=== PATIENT | female | born 1985 | race Caucasian/White ===

== ENCOUNTER 2016-09-25 17:49 | Emergency (ER) | payer MEDICAID ==
[2016-09-25 19:23] LABS: BASOPHILS 0.2 % (0.0-2.0); HEMOGLOBIN 9.4 g/dL (12-16); IMMATURE GRANULOCYTES 0.4 % (0-5); MCH 25.7 pg (26.0-34.0); MCHC 31.3 g/dL (31.0-37.0); MEAN PLATELET VOLUME 10.5 fL (7.4-10.4); MONOCYTES 6.7 % (2-11); NEUTROPHILS 60.7 % (40-80); PLATELET COUNT 181 10x3/uL (130-400); RBC 3.66 10x6/uL (4.00-5.40); RDW 18.5 % (11.5-14.5); WBC 5.1 10x3/uL (4.8-10.8)
[2016-09-25 19:53] LABS: ALBUMIN 3.1 g/dL (3.4-5.0); ALKALINE PHOSPHATASE 72 U/L (46-116); ALT (SGPT) 20 U/L (10-68); BILIRUBIN - TOTAL 1.43 mg/dL (0.2-1.3); CALC OSMOLALITY 279 mosm/kg (275-300); CARBON DIOXIDE 25.9 mmol/L (21.0-32.0); CHLORIDE - SERUM 106 mmol/L (98-107); CREATININE - SERUM 0.7 mg/dL (0.6-1.3); GLUCOSE 152 mg/dL (74-106); POTASSIUM - SERUM 3.7 mmol/L (3.5-5.1); PROTEIN - SERUM 7.3 g/dL (6.4-8.2); SODIUM 140 mmol/L (136-145); UREA NITROGEN 7 mg/dL (7-18); eGFR NON AFRICAN AMERICAN > 90 mL/min (90-120)
[2016-09-25 20:03] LABS: APPEARANCE HAZY (CLEAR); BILIRUBIN NEGATIVE (NEGATIVE); COLOR YELLOW (YELLOW); GLUCOSE NEGATIVE (NEGATIVE); KETONE NEGATIVE (NEGATIVE); LEUKOCYTE ESTERASE 2+ (NEGATIVE); NITRITE POSITIVE (NEGATIVE); PROTEIN TRACE mg/dL (NEGATIVE); UROBILINOGEN NORMAL (NORMAL)
[2016-09-25 20:04] LABS: BACTERIA MANY /hpf (NONE SEEN); RED CELLS - URINE 0-5 /hpf (0-5); WHITE CELLS - URINE 25-50 /hpf (0-5)
[2016-09-25 20:14] LABS: HCG SERUM NEGATIVE (NEGATIVE)
== END 2016-09-25 20:36 | disposition home or self-care (01) ==
LOC: D.ER 17:49
PROVIDERS: Emergency Medicine
DX: R11.10 Vomiting, unspecified (principal); E86.0 Dehydration; A08.4 Viral intestinal infection, unspecified; N39.0 Urinary tract infection, site not specified; B20 Human immunodeficiency virus [HIV] disease

== ENCOUNTER 2016-09-27 16:21 | Emergency (ER) | payer MEDICAID ==
[2016-09-27 17:03] LABS: BASOPHILS 0.2 % (0.0-2.0); EOSINOPHILS 1.5 % (0-7); HEMATOCRIT 28.6 % (36.0-48.0); HEMOGLOBIN 9.3 g/dL (12-16); IMMATURE GRANULOCYTES 0.4 % (0-5); LYMPHOCYTES 30.3 % (15-50); MCH 26.2 pg (26.0-34.0); MCHC 32.5 g/dL (31.0-37.0); MCV 80.6 fL (80.0-100.0); MEAN PLATELET VOLUME 10.5 fL (7.4-10.4); MONOCYTES 5.4 % (2-11); NEUTROPHILS 62.2 % (40-80); PLATELET COUNT 181 10x3/uL (130-400); RBC 3.55 10x6/uL (4.00-5.40); RDW 18.6 % (11.5-14.5); WBC 5.2 10x3/uL (4.8-10.8)
[2016-09-27 17:06] LABS: HCG SERUM NEGATIVE (NEGATIVE)
[2016-09-27 17:19] LABS: ALBUMIN 2.9 g/dL (3.4-5.0); ALKALINE PHOSPHATASE 69 U/L (46-116); ALT (SGPT) 23 U/L (10-68); BILIRUBIN - TOTAL 1.06 mg/dL (0.2-1.3); CALC OSMOLALITY 280 mosm/kg (275-300); CALCIUM 8.3 mg/dL (8.5-10.1); CARBON DIOXIDE 25.1 mmol/L (21.0-32.0); CHLORIDE - SERUM 107 mmol/L (98-107); CREATININE - SERUM 0.6 mg/dL (0.6-1.3); GLUCOSE 130 mg/dL (74-106); POTASSIUM - SERUM 3.8 mmol/L (3.5-5.1); PROTEIN - SERUM 6.9 g/dL (6.4-8.2); SODIUM 141 mmol/L (136-145); UREA NITROGEN 7 mg/dL (7-18); eGFR NON AFRICAN AMERICAN > 90 mL/min (90-120)
[2016-09-27 17:52] LABS: APPEARANCE HAZY (CLEAR); COLOR YELLOW (YELLOW)
[2016-09-27 17:53] LABS: BILIRUBIN NEGATIVE (NEGATIVE); GLUCOSE NEGATIVE (NEGATIVE); KETONE NEGATIVE (NEGATIVE); LEUKOCYTE ESTERASE 1+ (NEGATIVE); NITRITE POSITIVE (NEGATIVE); PROTEIN NEGATIVE (NEGATIVE); UROBILINOGEN NORMAL (NORMAL)
[2016-09-27 17:55] LABS: BACTERIA MANY /hpf (NONE SEEN); EPITHELIAL CELLS 0-5 /hpf (0-5); RED CELLS - URINE 0-5 /hpf (0-5)
== END 2016-09-27 19:00 | disposition home or self-care (01) ==
LOC: D.ER 16:21
PROVIDERS: Emergency Medicine
DX: R10.9 Unspecified abdominal pain (principal); N39.0 Urinary tract infection, site not specified; F17.200 Nicotine dependence, unspecified, uncomplicated

== ENCOUNTER 2016-11-27 16:31 | Emergency (ER) | payer MEDICAID ==
[2016-11-27 17:44] LABS: BASOPHILS 0.2 % (0-2); EOSINOPHILS 1.5 % (0-7); HEMATOCRIT 29.8 % (36.0-48.0); HEMOGLOBIN 9.8 g/dL (12-16); IMMATURE GRANULOCYTES 0.4 % (0-5); LYMPHOCYTES 34.3 % (15-50); MCH 26.8 pg (26.0-34.0); MCHC 32.9 g/dL (31.0-37.0); MCV 81.4 fL (80.0-100.0); MEAN PLATELET VOLUME 10.3 fL (7.4-10.4); MONOCYTES 6.1 % (2-11); NEUTROPHILS 57.5 % (40-80); PLATELET COUNT 203 10x3/uL (130-400); RBC 3.66 10x6/uL (4.00-5.40); RDW 18.6 % (11.5-14.5); WBC 5.5 10x3/uL (4.8-10.8)
[2016-11-27 17:54] LABS: APTT 28.7 SECONDS (22.8-39.4); INR 0.98 (0.85-1.17); PROTIME 12.8 SECONDS (11.6-15.0)
[2016-11-27 18:04] LABS: ALBUMIN 3.3 g/dL (3.4-5.0); ALKALINE PHOSPHATASE 78 U/L (46-116); ALT (SGPT) 16 U/L (10-68); BILIRUBIN - TOTAL 1.29 mg/dL (0.2-1.3); CALC OSMOLALITY 274 mosm/kg (275-300); CALCIUM 8.7 mg/dL (8.5-10.1); CARBON DIOXIDE 26.4 mmol/L (21.0-32.0); CHLORIDE - SERUM 105 mmol/L (98-107); CREATININE - SERUM 0.6 mg/dL (0.6-1.3); GLUCOSE 117 mg/dL (74-106); PROTEIN - SERUM 8.2 g/dL (6.4-8.2); SODIUM 138 mmol/L (136-145); UREA NITROGEN 7 mg/dL (7-18); eGFR NON AFRICAN AMERICAN > 90 mL/min (90-120)
[2016-11-27 21:03] LABS: APPEARANCE HAZY (CLEAR); COLOR YELLOW (YELLOW); GLUCOSE NEGATIVE (NEGATIVE); KETONE NEGATIVE (NEGATIVE); LEUKOCYTE ESTERASE 2+ (NEGATIVE); NITRITE NEGATIVE (NEGATIVE); PROTEIN NEGATIVE (NEGATIVE); UROBILINOGEN NORMAL (NORMAL)
[2016-11-27 21:04] LABS: BILIRUBIN NEGATIVE (NEGATIVE)
[2016-11-27 21:05] LABS: RED CELLS - URINE 0-5 /hpf (0-5)
[2016-11-27 21:06] LABS: BACTERIA MANY /hpf (NONE SEEN); HCG URINE NEGATIVE (NEGATIVE)
== END 2016-11-27 21:17 | disposition home or self-care (01) ==
LOC: D.ER 16:31
PROVIDERS: Family Medicine; Nurse Practitioner Acute Care
DX: N39.0 Urinary tract infection, site not specified (principal); B20 Human immunodeficiency virus [HIV] disease

== ENCOUNTER 2017-02-02 15:57 | Emergency (ER) | payer MEDICAID ==
[2017-02-02 16:27] LABS: BASOPHILS 0.2 % (0-2); EOSINOPHILS 1.3 % (0-7); HEMATOCRIT 29.5 % (36.0-48.0); HEMOGLOBIN 9.5 g/dL (12-16); IMMATURE GRANULOCYTES 0.5 % (0-5); LYMPHOCYTES 26.7 % (15-50); MCHC 32.2 g/dL (31.0-37.0); MCV 83.8 fL (80.0-100.0); MEAN PLATELET VOLUME 10.5 fL (7.4-10.4); NEUTROPHILS 65.3 % (40-80); RBC 3.52 10x6/uL (4.00-5.40); RDW 19.1 % (11.5-14.5); WBC 5.5 10x3/uL (4.8-10.8)
[2017-02-02 16:28] LABS: PLATELET COUNT 159 10x3/uL (130-400)
[2017-02-02 16:40] LABS: HCG SERUM NEGATIVE (NEGATIVE)
[2017-02-02 16:52] LABS: ALBUMIN 3.1 g/dL (3.4-5.0); ALKALINE PHOSPHATASE 85 U/L (46-116); ALT (SGPT) 11 U/L (10-68); BILIRUBIN - TOTAL 1.51 mg/dL (0.2-1.3); CALC OSMOLALITY 278 mosm/kg (275-300); CALCIUM 8.2 mg/dL (8.5-10.1); CARBON DIOXIDE 25.2 mmol/L (21.0-32.0); CHLORIDE - SERUM 107 mmol/L (98-107); CREATININE - SERUM 0.3 mg/dL (0.6-1.3); GLUCOSE 132 mg/dL (74-106); POTASSIUM - SERUM 4.9 mmol/L (3.5-5.1); PROTEIN - SERUM 7.6 g/dL (6.4-8.2); SODIUM 139 mmol/L (136-145); UREA NITROGEN 9 mg/dL (7-18); eGFR NON AFRICAN AMERICAN > 90 mL/min (90-120)
[2017-02-02 17:36] LABS: APPEARANCE CLEAR (CLEAR); COLOR YELLOW (YELLOW); SPECIFIC GRAVITY 1.015 (1.005-1.020)
[2017-02-02 17:37] LABS: BILIRUBIN NEGATIVE (NEGATIVE); GLUCOSE NEGATIVE (NEGATIVE); KETONE NEGATIVE (NEGATIVE); LEUKOCYTE ESTERASE 1+ (NEGATIVE); NITRITE POSITIVE (NEGATIVE); PROTEIN NEGATIVE (NEGATIVE); UROBILINOGEN NORMAL (NORMAL)
[2017-02-02 17:42] LABS: BACTERIA MANY /hpf (NONE SEEN); EPITHELIAL CELLS 0-5 /hpf (0-5)
== END 2017-02-02 18:39 | disposition home or self-care (01) ==
LOC: D.ER 15:57
PROVIDERS: Emergency Medicine; Nurse Practitioner Family
DX: N93.9 Abnormal uterine and vaginal bleeding, unspecified (principal); R10.2 Pelvic and perineal pain; N39.0 Urinary tract infection, site not specified; B20 Human immunodeficiency virus [HIV] disease; R10.9 Unspecified abdominal pain; R50.9 Fever, unspecified; M54.5 Low back pain; R35.0 Frequency of micturition; R11.10 Vomiting, unspecified

== ENCOUNTER 2017-03-01 23:45 | Emergency (ER) | payer MEDICAID ==
[2017-03-02 01:20] LABS: BASOPHILS 0 % (0-2); EOSINOPHILS 1.9 % (0-7); HEMATOCRIT 26.8 % (36.0-48.0); HEMOGLOBIN 8.7 g/dL (12-16); IMMATURE GRANULOCYTES 0.2 % (0-5); LYMPHOCYTES 35.6 % (15-50); MCH 26.2 pg (26.0-34.0); MCHC 32.5 g/dL (31.0-37.0); MCV 80.7 fL (80.0-100.0); MEAN PLATELET VOLUME 10.4 fL (7.4-10.4); MONOCYTES 5.7 % (2-11); NEUTROPHILS 56.6 % (40-80); RBC 3.32 10x6/uL (4.00-5.40); RDW 17.4 % (11.5-14.5); WBC 4.2 10x3/uL (4.8-10.8)
[2017-03-02 01:26] LABS: ALBUMIN 2.8 g/dL (3.4-5.0); ALKALINE PHOSPHATASE 84 U/L (46-116); ALT (SGPT) 17 U/L (10-68); AMYLASE - SERUM 43 U/L (25-115); CALC OSMOLALITY 280 mosm/kg (275-300); CALCIUM 7.8 mg/dL (8.5-10.1); CARBON DIOXIDE 29.3 mmol/L (21.0-32.0); CHLORIDE - SERUM 107 mmol/L (98-107); CREATININE - SERUM 0.7 mg/dL (0.6-1.3); GLUCOSE 119 mg/dL (74-106); LIPASE 107 U/L (73-393); POTASSIUM - SERUM 3.2 mmol/L (3.5-5.1); PROTEIN - SERUM 7.1 g/dL (6.4-8.2); SODIUM 142 mmol/L (136-145); UREA NITROGEN 5 mg/dL (7-18); eGFR NON AFRICAN AMERICAN > 90 mL/min (90-120)
[2017-03-02 01:27] LABS: PLATELET COUNT 209 10x3/uL (130-400)
[2017-03-02 02:01] LABS: HCG URINE NEGATIVE (NEGATIVE)
[2017-03-02 02:03] LABS: APPEARANCE HAZY (CLEAR); BILIRUBIN NEGATIVE (NEGATIVE); COLOR YELLOW (YELLOW); GLUCOSE NEGATIVE (NEGATIVE); KETONE NEGATIVE (NEGATIVE); LEUKOCYTE ESTERASE 1+ (NEGATIVE); NITRITE POSITIVE (NEGATIVE); PROTEIN TRACE mg/dL (NEGATIVE); SPECIFIC GRAVITY 1.015 (1.005-1.020); UROBILINOGEN NORMAL (NORMAL)
[2017-03-02 02:04] LABS: BACTERIA MANY /hpf (NONE SEEN); EPITHELIAL CELLS RARE /hpf (0-5); RED CELLS - URINE 0-5 /hpf (0-5)
== END 2017-03-02 03:05 | disposition home or self-care (01) ==
LOC: D.ER 23:45
PROVIDERS: Family Medicine
DX: K59.00 Constipation, unspecified (principal); R11.10 Vomiting, unspecified; N39.0 Urinary tract infection, site not specified; D64.9 Anemia, unspecified; B20 Human immunodeficiency virus [HIV] disease

== ENCOUNTER 2017-03-17 13:49 | Emergency (ER) | payer MEDICAID ==
[2017-03-17 14:17] LABS: BASOPHILS 0.2 % (0-2); EOSINOPHILS 0.6 % (0-7); HEMATOCRIT 32.2 % (36.0-48.0); HEMOGLOBIN 10.6 g/dL (12-16); IMMATURE GRANULOCYTES 0.2 % (0-5); LYMPHOCYTES 30.5 % (15-50); MCH 26.5 pg (26.0-34.0); MCHC 32.9 g/dL (31.0-37.0); MCV 80.5 fL (80.0-100.0); MEAN PLATELET VOLUME 10.2 fL (7.4-10.4); MONOCYTES 6.3 % (2-11); NEUTROPHILS 62.2 % (40-80); PLATELET COUNT 226 10x3/uL (130-400); WBC 6.4 10x3/uL (4.8-10.8)
[2017-03-17 14:44] LABS: APPEARANCE HAZY (CLEAR); BILIRUBIN NEGATIVE (NEGATIVE); COLOR YELLOW (YELLOW); GLUCOSE NEGATIVE (NEGATIVE); KETONE NEGATIVE (NEGATIVE); LEUKOCYTE ESTERASE 2+ (NEGATIVE); NITRITE NEGATIVE (NEGATIVE); PROTEIN NEGATIVE (NEGATIVE); UROBILINOGEN NORMAL (NORMAL)
[2017-03-17 14:45] LABS: BACTERIA MANY /hpf (NONE SEEN); MUCUS <1+ /lpf (NONE SEEN); RED CELLS - URINE 0-5 /hpf (0-5); WHITE CELLS - URINE 25-50 /hpf (0-5)
[2017-03-17 14:51] LABS: HCG SERUM NEGATIVE (NEGATIVE)
== END 2017-03-17 15:46 | disposition home or self-care (01) ==
LOC: D.ER 13:49
PROVIDERS: Emergency Medicine
DX: R10.9 Unspecified abdominal pain (principal); D64.9 Anemia, unspecified; N76.0 Acute vaginitis; B20 Human immunodeficiency virus [HIV] disease

== ENCOUNTER 2020-10-26 01:20 | Inpatient (IN) | payer MEDICAID ==
[~2020-10-26] VITALS: Ht 167.6 cm; Wt 145.1 kg
[2020-10-26] VITALS (10 sets, daily range): BP systolic 86–119; BP diastolic 43–64; Ht 167.6 cm; Wt 145.1 kg
[2020-10-26] MEDS ORDERED: DOVATO PO (01:44)
[2020-10-26] MEDS ORDERED: HYDROCHLOROTHIA50 MG PO (01:55)
[2020-10-26 02:03] LABS: BASOPHILS 0.2 % (0-2); EOSINOPHILS 0.6 % (0-7); HEMATOCRIT 27.5 % (36.0-48.0); HEMOGLOBIN 8.7 g/dL (12-16); IMMATURE GRANULOCYTES 0.4 % (0-5); LYMPHOCYTE ABS# 0.33 10x3/uL (1.18-3.74); LYMPHOCYTES 6.5 % (15-50); MCH 25.7 pg (26.0-34.0); MCHC 31.6 g/dL (31.0-37.0); MCV 81.1 fL (80.0-100.0); MEAN PLATELET VOLUME 10.2 fL (7.4-10.4); MONOCYTES 0.8 % (2-11); NEUTROPHIL ABS# 4.65 10x3/uL (1.56-6.13); NEUTROPHILS 91.5 % (40-80); PLATELET COUNT 193 10x3/uL (130-400); RBC 3.39 10x6/uL (4.00-5.40); RDW 17.6 % (11.5-14.5); WBC 5.1 10x3/uL (4.8-10.8)
[2020-10-26 02:11] LABS: BILIRUBIN NEGATIVE (NEGATIVE); KETONE NEGATIVE (NEGATIVE); NITRITE NEGATIVE (NEGATIVE); UROBILINOGEN NORMAL mg/dL (< 2)
[2020-10-26 02:13] LABS: CALC OSMOLALITY 281 mosm/kg (275-300); CALCIUM 7.6 mg/dL (8.5-10.1); CARBON DIOXIDE 25.7 mmol/L (21.0-32.0); CHLORIDE - SERUM 106 mmol/L (98-107); CREATININE - SERUM 0.9 mg/dL (0.6-1.3); POTASSIUM - SERUM 3.4 mmol/L (3.5-5.1); SODIUM 140 mmol/L (136-145); UREA NITROGEN 9 mg/dL (7-18); eGFR NON AFRICAN AMERICAN 75 mL/min (90-120)
[2020-10-26 02:13] LABS: BACTERIA MODERATE HPF (NONE SEEN); SQUAMOUS EPITHELIAL 0-5 HPF (0-4)
[2020-10-26 02:14] LABS: GLUCOSE 173 mg/dL (74-106)
[2020-10-26 02:19] LABS: ALBUMIN 2.8 g/dL (3.4-5.0); ALKALINE PHOSPHATASE 76 U/L (30-120); ALT (SGPT) 15 U/L (10-68); BILIRUBIN - TOTAL 3.25 mg/dL (0.2-1.3)
[2020-10-26 02:57] LABS: HCG URINE NEGATIVE (NEGATIVE)
[2020-10-26 03:25] LABS: UDS - AMPHET POSITIVE QUAL (NEGATIVE); UDS - BARB NEGATIVE QUAL (NEGATIVE); UDS - BENZO NEGATIVE QUAL (NEGATIVE); UDS - COCAINE NEGATIVE QUAL (NEGATIVE); UDS - OPIATE NEGATIVE QUAL (NEGATIVE); UDS - PCP NEGATIVE QUAL (NEGATIVE); UDS - THC POSITIVE QUAL (NEGATIVE)
[2020-10-26 11:16] LABS: CHOL - HDL RATIO 2.3 ratio (2.3-4.1); LDL-HDL RATIO 0.8 ratio (1.5-3.5); THYROID STIMULATING HORMONE 2.87 uIU/mL (0.36-3.74)
--- NOTE | 2020-10-26 14:30 | MORECARE ---
CASE MANAGEMENT DISCHARGE SUMMARY PATIENT: AVEL CASIANO UNIT: [id number] ADM DATE: 10/26/20 AGE: 35 : 85 SEX: F ROOM/BED: D.2201 AUTHOR: BETO,DOC PHYSICIAN: REFERRING PHYSICIAN: FABRICIO BARNARD MD DATE OF SERVICE: 10/26/20 Case Management Discharge Planning Summary COMMENTS ENTERED DATE: 10/26/20 14:24 CT COMMENT TYPE: Discharge Planning REVIEWER[facility] needs to be transferred to a higher level of care for ID. I called [facility] and spoke with Nicolasa and started that process DCP REVIEW SUMMARY ANTICIPATED D/C DATE: EXPECTED LOS : CASE STATUS: DCP Initiated INITIAL REVIEW: 10/26/2020 INITIAL REVIEWER: Kizzy Johnston FINAL DISCHARGE DISPOSITION: : FINAL REVIEWER: FINAL REVIEW DATE: DCP Focus Questions & Answers QUESTION: ANSWER : PATIENT: AVEL CASIANO ENCOUNTER: [id number] MEDICAL RECORD#: [id number] ADMISSION DATE: 10/26/2020 DISCHARGE DATE: ATTENDING MD: FABRICIO ARRIETA : AGE: 35 MARITAL STATUS: M DC PLAN ID: [id number] FACILITY: [facility] PRINTED ON: 10/26/20 14:30 CT All edits/amendments must be made on the electronic document DICTATION DATE: 10/26/201429 OPERATIONS GENERAL AGENT: DM 10/26/20 143 RPT#: [id number] DC DATE: STATUS: ADM IN [facility] [address] [place] [address] END OF REPORT
[2020-10-26 15:55] LABS: C-REACTIVE PROTEIN 13.7 mg/dL (0.0-0.9)
[2020-10-26 16:31] LABS: ERYTHROCYTE SEDIMENTATION RATE 32 mm/hr (0-20)
[2020-10-26 18:01] LABS: INFLUENZA TYPE A NEGATIVE (NEGATIVE); INFLUENZA TYPE B NEGATIVE (NEGATIVE); SARS-CoV-2 ANTIGEN NEGATIVE- SARS-COV-2 (NEGATIVE)
--- NOTE | 2020-10-26 18:25 | NUR ---
0700 NEW PATIENT ADMMITTED TO ROOM 2201 AWAKE ALERT FAMILY MEMBER REMAINS AT BEDSIDE
--- NOTE | 2020-10-26 18:27 | NUR ---
0830 NS 1 LITER BOLUS INITIATED C/O HEADACHE REFUSED APAP
[2020-10-26 18:30] LABS: INR 1.23 (0.85-1.17); PROTIME 14.3 SECONDS (11.6-15.0)
--- NOTE | 2020-10-26 18:30 | NUR ---
0954 EZEQUIEL GIIIVEN IV PER NEW ORDER
--- NOTE | 2020-10-26 18:31 | NUR ---
1347 PT REMAINS LETHARGIC NARCAN IV GIVEN ORDERED PT REFUSED LAB DRAW
--- NOTE | 2020-10-26 18:32 | NUR ---
1600 DR OLSON AT BEDSIDE NEW LABS ORDERED PT AGREED TO HAVE LAB DRAWN
--- NOTE | 2020-10-26 19:05 | NUR ---
REPORT CALLED TO CELESTINA ON MED 2
[2020-10-27 04:54] VITALS: BP 106/45; BP 118/63
[2020-10-27 06:24] LABS: CALC OSMOLALITY 285 mosm/kg (275-300); CALCIUM 7.9 mg/dL (8.5-10.1); CARBON DIOXIDE 26.5 mmol/L (21.0-32.0); CHLORIDE - SERUM 111 mmol/L (98-107); CREATININE - SERUM 0.8 mg/dL (0.6-1.3); GLUCOSE 146 mg/dL (74-106); MAGNESIUM - SERUM 1.7 mg/dL (1.8-2.4); PHOSPHOROUS 2.4 mg/dL (2.5-4.9); POTASSIUM - SERUM 3.7 mmol/L (3.5-5.1); SODIUM 143 mmol/L (136-145); eGFR NON AFRICAN AMERICAN 86 mL/min (90-120)
[2020-10-27 06:29] LABS: UREA NITROGEN 6 mg/dL (7-18)
--- NOTE | 2020-10-27 07:00 | NUR ---
PT LYING IN BED. RESP EVEN AND UNLABORED. AAOX4. PT DENIES NEEDS AT THIS TIME. CLIR. BED IN LOWEST POSITION. SIDE RAILSX2
[2020-10-27 08:03] LABS: BASOPHILS 0.1 % (0-2); EOSINOPHILS 1.3 % (0-7); HEMATOCRIT 25.3 % (36.0-48.0); HEMOGLOBIN 7.8 g/dL (12-16); IMMATURE GRANULOCYTES 0.3 % (0-5); LYMPHOCYTES 16.5 % (15-50); MCH 25.3 pg (26.0-34.0); MCHC 30.8 g/dL (31.0-37.0); MCV 82.1 fL (80.0-100.0); MEAN PLATELET VOLUME 10.7 fL (7.4-10.4); MONOCYTES 6.6 % (2-11); NEUTROPHIL ABS# 5.02 10x3/uL (1.56-6.13); NEUTROPHILS 75.2 % (40-80); PLATELET COUNT 189 10x3/uL (130-400); RBC 3.08 10x6/uL (4.00-5.40); RDW 18.4 % (11.5-14.5)
[2020-10-27 08:04] LABS: WBC 6.7 10x3/uL (4.8-10.8)
--- NOTE | 2020-10-27 08:06 | MORECARE ---
CASE MANAGEMENT DISCHARGE SUMMARY PATIENT: AVEL CASIANO UNIT: [id number] ADM DATE: 10/26/20 AGE: 35 : 85 SEX: F ROOM/BED: D.2128 AUTHOR: BETO,DOC PHYSICIAN: REFERRING PHYSICIAN: FABRICIO BARNARD MD DATE OF SERVICE: 10/27/20 Case Management Discharge Planning Summary COMMENTS ENTERED DATE: 10/26/20 14:24 CT COMMENT TYPE: Discharge Planning REVIEWER: Kizzy Johnston [facility] called stated that the patient needs to be transferred to a higher level of care for ID. I called [facility] and spoke with Nicolasa and started that process DCP REVIEW SUMMARY ANTICIPATED D/C DATE: EXPECTED LOS : CASE STATUS: DCP Initiated INITIAL REVIEW: 10/26/2020 INITIAL REVIEWER: Kizzy Johnston FINAL DISCHARGE DISPOSITION: : FINAL REVIEWER: FINAL REVIEW DATE: DCP Focus Questions & Answers QUESTION: ANSWER : PATIENT: AVEL CASIANO ENCOUNTER: [id number] MEDICAL RECORD#: [id number] ADMISSION DATE: 10/26/2020 DISCHARGE DATE: ATTENDING MD: FABRICIO ARREITA : AGE: 35 MARITAL STATUS: M DC PLAN ID: [id number] FACILITY: [facility] PRINTED ON: 10/27/20 8:05 CT All edits/amendments must be made on the electronic document DICTATION DATE: 10/27/20804 LEAN SENSEI: BAUTISTA 10/27/20804 RPT#: [id number] DC DATE: STATUS: ADM IN [facility] [address] [place] [address] END OF REPORT
[2020-10-27 08:16] VITALS: BP 108/63
[2020-10-27 11:57] VITALS: BP 103/61
--- NOTE | 2020-10-27 14:00 | NUR ---
PT LEFT UNIT ACCOMPANIED BY HOSPITAL STAFF
--- NOTE | 2020-10-27 14:36 | NUR ---
PT RETURNED TO UNIT VIA WHEELCHAIR ACCOMPANIED BY HOSPITAL STAFF
[2020-10-27 14:53] VITALS: BP 116/68
[2020-10-27 15:11] LABS: BASOS 0 % (Not Estab.); CD4 - % CD4 POS. LYMPH 29.4 % (30.8-58.5); CD4 - ABSOLUTE CD4 HELPER 265 /uL (359-1519); CD4:8 - % CD8 POS LYMPH 48.7 % (12.0-35.5); CD4:8 - ABS CD8 SUPPRESSOR 438 /uL (109-897); EOS 1 % (Not Estab.); EOS (ABSOLUTE) 0.1 x10E3/uL (0.0-0.4); HEMATOCRIT 22.4 % (34.0-46.6); HEMOGLOBIN 7.4 g/dL (11.1-15.9); LYMPHS 12 % (Not Estab.); LYMPHS (ABSOLUTE) 0.9 x10E3/uL (0.7-3.1); MCH 26.2 pg (26.6-33.0); MCV 79 fL (79-97); MONOCYTES 6 % (Not Estab.); MONOCYTES (ABSOLUTE) 0.4 x10E3/uL (0.1-0.9); NEUTROPHILS 81 % (Not Estab.); NEUTROPHILS (ABSOLUTE) 6.1 x10E3/uL (1.4-7.0); PLATELETS 158 x10E3/uL (150-450); RBC 2.82 x10E6/uL (3.77-5.28); RDW 17.3 % (11.7-15.4); WBC 7.5 x10E3/uL (3.4-10.8)
--- NOTE | 2020-10-27 16:49 | NUR ---
I have reviewed this patient and I concur with the Shift Assessment completed by the Licensed Practical Nurse today this shift.
[2020-10-27 20:54] VITALS: BP 128/70
--- NOTE | 2020-10-28 00:25 | NUR ---
NEW IV PLACED 22G LEFT FOREARM AT THIS TIME.
[2020-10-28 01:56] VITALS: BP 126/81
[2020-10-28 06:43] VITALS: BP 119/62
[2020-10-28 09:51] LABS: ALBUMIN 2.5 g/dL (3.4-5.0); ALKALINE PHOSPHATASE 64 U/L (30-120); ALT (SGPT) 12 U/L (10-68); BILIRUBIN - TOTAL 1.18 mg/dL (0.2-1.3); CALCIUM 8.3 mg/dL (8.5-10.1); CARBON DIOXIDE 25.6 mmol/L (21.0-32.0); CHLORIDE - SERUM 108 mmol/L (98-107); CREATININE - SERUM 0.8 mg/dL (0.6-1.3); GLUCOSE 102 mg/dL (74-106); PROTEIN - SERUM 6.3 g/dL (6.4-8.2); SODIUM 142 mmol/L (136-145); eGFR NON AFRICAN AMERICAN 86 mL/min (90-120)
[2020-10-28 09:52] LABS: CALC OSMOLALITY 279 mosm/kg (275-300); POTASSIUM - SERUM 4.3 mmol/L (3.5-5.1); UREA NITROGEN 4 mg/dL (7-18)
[2020-10-28 09:54] LABS: BASOPHILS 0.2 % (0-2); EOSINOPHILS 2.1 % (0-7); HEMATOCRIT 24.2 % (36.0-48.0); IMMATURE GRANULOCYTES 0.4 % (0-5); LYMPHOCYTE ABS# 1.33 10x3/uL (1.18-3.74); LYMPHOCYTES 25.1 % (15-50); MCH 25.3 pg (26.0-34.0); MCV 81.8 fL (80.0-100.0); MEAN PLATELET VOLUME 10.7 fL (7.4-10.4); MONOCYTES 9.1 % (2-11); NEUTROPHIL ABS# 3.34 10x3/uL (1.56-6.13); NEUTROPHILS 63.1 % (40-80); PLATELET COUNT 191 10x3/uL (130-400); RBC 2.96 10x6/uL (4.00-5.40); RDW 18.3 % (11.5-14.5); WBC 5.3 10x3/uL (4.8-10.8)
[2020-10-28 09:56] LABS: HEMOGLOBIN 7.5 g/dL (12-16)
--- NOTE | 2020-10-28 12:04 | NUR ---
PT RESTING COMFORTABLY IN BED, DENIES ANY NEEDS. CALL LIGHT IN REACH.
[2020-10-28 12:25] VITALS: BP 93/56
--- NOTE | 2020-10-28 13:15 | NUR ---
PT STATING THAT SHE IS LEAVING, THAT SHE IS NOT DOING THIS AGAIN TODAY, TRIED TO EXPLAIN TO PT WHY SHE NEEDED TO STAY HERE ONE MORE DAY BUT PT STILL SAYING THAT SHE IS NOT STAYING HERE. NOFITIED VANESSA HURT, AND SHE STATED THAT PT CAN LEAVE AMA. TOOK AMA PAPER TO PT AND PT STATING THAT SHE WANTS TO TALK TO THE DOCTOR NOTIFIED VANESSA, WHO STATED THAT DR. BARNARD IS GONE FOR THE DAY, BLU WILL COME AND TALK TO PT.
--- NOTE | 2020-10-28 13:27 | NUR ---
WENT TO INFORM PT THAT DR. BARNARD IS GONE FOR THE DAY AND THAT VANESSA HURT WILL COME AND TALK TO HER SOMETIME TODAY. PT STATED THAT SHE WANTED TO TALK THE DOCTOR NOT THE POWER PLANT SUPERINTENDENT AND THAT SHE WANTED A DIFFERENT NURSE, WENT TO CHARGE NURSE AND NICOLA RO WAS ASSIGNED TO PT.
--- NOTE | 2020-10-28 13:46 | NUR ---
CALLED TO PT'S ROOM DUE TO BEING UPSET ABOUT CARE AND WANTING TO TALK TO DOCTOR. WHEN TRYING TO DISCUSS ISSUES WITH NURSE, PT UPSET AND FIRED FLOOR NURSE BECOMING BELIGERANT AND CURSING. I ATTEMPTED TO TALK WITH SIGNIFICANT OTHER REGARDING WEARING ISOLATION GOWNS IN TO ROOM. HE STATES DOCTOR TOLD HIM HE DID NOT HAVE TO WEAR THEM NOW. I EXPLAINED THAT HE STILL HAD TO DUE TO DIFFERENT TYPE OF ISOLATION AND IF WOULD PUT GOWN ON THEN I WOULD PUT MINE ON AND WE WOULD GO INSIDE AND TALK WITH PT REGARDING CARE PLAN. PT CAME BUSTING UP OUT OF THE ROOM IN MY FACE AND WAS YELLING ABOUT LEAVING AMA. STARTED MAKING ACCUSATIONS ABOUT CHARGE NURSE THREATENING HER AND LAYING HANDS ON HER WHICH WAS UNFOUNDED WITH MULTIPLE WITNESSES INVOLVED. SECURITY ARRIVED AND TRIED TO DEFUSE SITUATION BUT WAS NOT HAPPENING. PLATE AND WELD INSPECTOR ARRIVED AND TOOK PT AND INSIDE ROOM TO TALK. OUTCOME WAS PT LEAVING AMA AFTER EXPLAINING NEED FOR IV ANTIBIOTICS AND REASONS FOR ISOLATION.
--- NOTE | 2020-10-28 14:16 | NUR ---
PT LEFT UNIT VIA AMBULATORY WITH ALL BELONGINGS, ACCOMPANIED BY SECURITY.
--- NOTE | 2020-10-28 14:24 | MORECARE ---
CASE MANAGEMENT DISCHARGE SUMMARY PATIENT: AVEL CASIANO UNIT: [id number] ADM DATE: 10/26/20 AGE: 35 : 85 SEX: F ROOM/BED: D.3712 AUTHOR: BETO,DOC PHYSICIAN: REFERRING PHYSICIAN: FABRICIO BARNARD MD DATE OF SERVICE: 10/28/20 Case Management Discharge Planning Summary COMMENTS ENTERED DATE: 10/26/20 14:24 CT COMMENT TYPE: Discharge Planning REVIEWER: [facility] needs [facility] be transferred to a higher level of care for ID. I called [facility] and spoke with Nicolasa and started that process DCP REVIEW SUMMARY ANTICIPATED D/C DATE: EXPECTED LOS : CASE STATUS: DCP Initiated INITIAL REVIEW: 10/26/2020 INITIAL REVIEWER: Kizzy Johnston FINAL DISCHARGE DISPOSITION: : FINAL REVIEWER: FINAL REVIEW DATE: DCP Focus Questions & Answers QUESTION: ANSWER : PATIENT: AVEL CASIANO ENCOUNTER: [id number] MEDICAL RECORD#: [id number] ADMISSION DATE: 10/26/2020 DISCHARGE DATE: 10/28/2020 ATTENDING MD: FABRICIO ARRIETA : AGE: 35 MARITAL STATUS: M DC PLAN ID: [id number] FACILITY: [facility] PRINTED ON: 10/28/20 14:24 CT All edits/amendments must be made on the electronic document DICTATION DATE: 10/28/201423 POULTRY CUTTER: DM 10/28/201423 RPT#: [id number] DC DATE:10/28/20 STATUS: DIS IN [facility] [address] [facility] [place], [place] [address] END OF REPORT
--- NOTE | 2020-10-29 13:11 | MORECARE ---
CASE MANAGEMENT DISCHARGE SUMMARY PATIENT: AVEL CASIANO UNIT: [id number] ADM DATE: 10/26/20 AGE: 35 : 85 SEX: F ROOM/BED: D.3604 AUTHOR: BETO,DOC PHYSICIAN: REFERRING PHYSICIAN: FABRICIO BARNARD MD DATE OF SERVICE: 10/29/20 Case Management Discharge Planning Summary COMMENTS ENTERED DATE: 10/26/20 14:24 CT COMMENT TYPE: Discharge Planning [facility]VIEWER[facility] needs [facility] be transferred to a higher level of care for ID. I called [facility] and spoke with Nicolasa and started that process DCP REVIEW SUMMARY ANTICIPATED D/C DATE: EXPECTED LOS : CASE STATUS: DCP Initiated INITIAL REVIEW: 10/26/2020 INITIAL REVIEWER: Kizzy Johnston FINAL DISCHARGE DISPOSITION: : FINAL REVIEWER: FINAL REVIEW DATE: DCP Focus Questions & Answers QUESTION: ANSWER : PATIENT: AVEL CASIANO ENCOUNTER: [id number] MEDICAL RECORD#: [id number] ADMISSION DATE: 10/26/2020 DISCHARGE DATE: 10/28/2020 ATTENDING MD: FABRICIO ARRIETA : AGE: 35 MARITAL STATUS: M DC PLAN ID: [id number] FACILITY: [facility] PRINTED ON: 10/29/20 13:11 CT All edits/amendments must be made on the electronic document DICTATION DATE: 10/29/20 1311 [facility] NURSE SUPERVISOR: DM 10/29/20 1311 RPT#: [id number] DC DATE:10/28/20 STATUS: DIS IN [facility] [address] [facility] [place], [place] [address] END OF REPORT
== END 2020-10-28 14:16 | disposition left against medical advice (07) | DRG 975 ==
LOC: D.ER 01:20 → D.MS 05:19 → D.M2 05:19
PROVIDERS: Family Medicine; Internal Medicine Pulmonary Disease; ADMIT Emergency Medicine; ATTEND Emergency Medicine
DX: A41.9 Sepsis, unspecified organism (principal); N39.0 Urinary tract infection, site not specified; B20 Human immunodeficiency virus [HIV] disease; J98.11 Atelectasis; Z68.43 Body mass index [BMI] 50.0-59.9, adult; Z20.822 Contact with and (suspected) exposure to COVID-19; R51.9 Headache, unspecified; E87.6 Hypokalemia; R73.9 Hyperglycemia, unspecified; E83.51 Hypocalcemia; F15.10 Other stimulant abuse, uncomplicated; F12.10 Cannabis abuse, uncomplicated; M19.90 Unspecified osteoarthritis, unspecified site; N83.201 Unspecified ovarian cyst, right side; E66.01 Morbid (severe) obesity due to excess calories; B19.20 Unspecified viral hepatitis C without hepatic coma